=== PATIENT | female | born 1945 | race Caucasian/White ===

== ENCOUNTER 2018-01-24 14:22 | Emergency (ER) | payer OTHER, MEDICAID ==
[~2018-01-24] VITALS: Ht 162.6 cm; Wt 56.2 kg
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
--- NOTE | 2018-01-24 14:42 | NUR ---
PATIENT TAKEN TO CT VIA STRETCHER.
--- NOTE | 2018-01-24 15:05 | NUR ---
PATIENT RETURNED FROM CT IN STABLE CONDITION
[2018-01-24] MEDS ORDERED: TRAMADOL HCL 50 MG TABLET PO ONE (16:00)
[2018-01-24] MEDS ORDERED: TRAMADOL HCL 50 MG TABLET ONE (16:11)
--- NOTE | 2018-01-24 16:40 | NUR ---
Patient discharged to home in stable condition. Written and verbal after care instructions given. Patient verbalizes understanding of instruction.
[2018-01-24 16:45] VITALS: BP 132/76
== END 2018-01-24 16:46 | disposition home or self-care (01) ==
LOC: ER 14:30
DX: M54.2 Cervicalgia (principal); M54.9 Dorsalgia, unspecified; V43.52XA Car driver injured in collision with other type car in traffic accident, initial encounter; Y93.89 Activity, other specified; Y92.410 Unspecified street and highway as the place of occurrence of the external cause; Y99.8 Other external cause status
CPT/HCPCS: 71045-TC; 72125-TC; 72128-TC; 72131-TC; A4606; Z7610